=== PATIENT | female | born 1960 | race Caucasian/White ===

== ENCOUNTER → 2019-01-02 08:50 | Outpatient (CLI) | payer MEDICARE, SELFPAY ==
[2014-07-28 19:02] VITALS: BMI 17.9
--- NOTE | 2019-01-02 08:56 | RAD_ITS ---
STUDY: X-RAY - LUMBAR SPINE REASON FOR EXAM: Female, 58 years old. Low back pain TECHNIQUE: 3 view(s) of the lumbar spine were obtained. COMPARISON: None FINDINGS: Normal lumbar lordosis. There is a mild dextroscoliosis of the lumbar spine. There is a normal alignment of the vertebrae. Normal vertebral bodies and endplates. There is multi-level degenerative disc disease with multi-level disc space narrowing, most pronounced at L5/S1. There is no demonstrated fracture. The soft tissue structures are unremarkable. RAD/Lumbar Spine 2 or 3 Views IMPRESSION: Degenerative changes, no acute findings Electronically Signed: Dominic Timmons MD at 8:49 EDT , Service support ,
--- NOTE | 2019-01-02 09:00 | RAD_ITS ---
STUDY: X-RAY - CERVICAL SPINE REASON FOR EXAM: Female, 58 years old. NECK PAIN TECHNIQUE: 3 view(s) of the cervical spine were obtained. COMPARISON: None FINDINGS: Normal cervical lordosis. There is multi-level endplate spondylosis. There is multi-level degenerative disc disease with multilevel disc space narrowing. Findings are most prominent at C5/C6 with moderate disc space narrowing The soft tissue structures are unremarkable. RAD/Cerv Spine 2 or 3 Views IMPRESSION: Degenerative changes of the spine. Electronically Signed: Lizzy Berman MD at 8:34 EDT Tel , Service support ,
== END ==
PROVIDERS: Family Provider Student in an Organized Health Care Education/Training Program; PCP Student in an Organized Health Care Education/Training Program; Referring Provider Anesthesiology Pain Medicine; Visit Provider Anesthesiology Pain Medicine
DX: M54.2 Cervicalgia (principal); M54.9 Dorsalgia, unspecified
CPT/HCPCS: 72040; 72100

== ENCOUNTER → 2019-04-29 07:21 | Outpatient (CLI) | payer MEDICARE, SELFPAY ==
--- NOTE | 2019-04-29 07:45 | MRI_ITS ---
STUDY: MRI LUMBAR SPINE WITHOUT CONTRAST REASON FOR EXAM: Female, 58 years old. LOWER BACK AND BILAT HIP PAIN TECHNIQUE: Standardized fat and water weighted pulse sequences were obtained in the sagittal and axial planes. COMPARISON: X-ray 01/02/2019 FINDINGS: T12-L1: Normal endplates. Normal disc height, hydration and morphology. Normal bilateral facet joints. Normal central canal and bilateral lateral recesses. Normal bilateral intervertebral neural foramina. Normal lumbar lordosis. Mild dextroscoliosis of the upper lumbar spine. Normal conus medullaris that terminates at the L1/L2. L1-2: Normal endplates. Normal disc height, hydration and morphology. Normal bilateral facet joints. Normal central canal and bilateral lateral recesses. Normal bilateral intervertebral neural foramina. L2-3: Mild broad disc protrusion produces mild spinal stenosis and mild bilateral neural foraminal stenosis. L3-4: Mild bilobed disc protrusion produces mild spinal stenosis and mild bilateral neural foraminal stenosis. L4-5: Normal endplates. Normal disc height, hydration and morphology. Normal bilateral facet joints. Normal central canal and bilateral lateral recesses. Normal bilateral intervertebral neural foramina. L5-S1: Mild broad disc protrusion produces mild spinal stenosis and moderate bilateral neural foraminal stenosis. Normal visualized sacral ala. 3.5 cm abdominal aortic aneurysm. MRI/Spine Lumbar (Routine) IMPRESSION: 1. Mild dextroscoliosis with mild degenerative disc disease as described above.. 2. 3.5 cm abdominal aortic aneurysm. Electronically Signed: Antoine Crenshaw MD at 8:43 EST Tel , Service support ,
== END ==
PROVIDERS: PCP Student in an Organized Health Care Education/Training Program; Referring Provider Anesthesiology Pain Medicine; Visit Provider Anesthesiology Pain Medicine
DX: M54.9 Dorsalgia, unspecified (principal)
CPT/HCPCS: 72148

== ENCOUNTER 2019-08-08 19:02 | Emergency (ER) | payer MEDICARE, SELFPAY ==
[2019-08-08 19:03] VITALS: BP 212/138; PULSE 128; RESP 24; TEMP 36; O2SAT 87; BMI 17.0
[2019-08-08 19:08] VITALS: O2SAT 93
[2019-08-08 19:23] VITALS: O2SAT 93
--- NOTE | 2019-08-08 19:25 | RAD_ITS ---
We are attempting to reach an attending provider to discuss findings. An addendum with communication details will be sent when the communication is complete. STUDY: X-RAY CHEST REASON FOR EXAM: Female, 59 years old. NO BREATH SOUNDS LEFT AFTER INTERCOSTAL BLOCK TECHNIQUE: Portable chest COMPARISON: None. FINDINGS: There is a large left-sided pneumothorax. There is mediastinal shift to the right. There is no demonstrated pleural abnormality. Normal size heart. Normal mediastinum and didier. Normal visualized pulmonary arteries. Normal visualized aortic arch and descending thoracic aorta. Normal visualized thoracic spine. Normal visualized ribs, clavicles, and shoulders. There is no demonstrated abnormality of the visualized soft tissue structures of the upper abdomen. RAD/Chest Insp/Exp 2 View IMPRESSION: Large left-sided tension pneumothorax Electronically Signed: Sonu Purdy, at 20:19 EDT Tel , Service support ,
--- NOTE | 2019-08-08 19:29 | ED.VIS.GEN ---
History of Present Illness Chief Complaint: Shortness of Breath Detail of Chief Complaint: Sided chest pain and shortness of breath after intercostal nerve block Onset: Today Context: Sudden Onset Timing: Continuous Quality: States she coughed during procedure. She is had difficulty since Location: Left posterior side Current Severity: Moderate Maximum Severity: Severe Worsened by: Dyspnea on exertion Relieved by: Nothing Associated Symptoms: Cannot breathe Narrative: Patient is a 51-year-old woman who had an intercostal nerve block placed by Dr. Tee. She states all of her symptoms started after the intercostal nerve block. She states she coughed during the procedure. She denies fever, chills night sweats. She denies respiratory symptoms. She denies GI symptoms. She denies leg pain, swelling discoloration. She states she had the nerve block placed because of constant pain. Prior similar symptoms: No Recent Illness/Hospitalization: No Past Medical History - Allergies and Home Meds Allergies/Adverse Reactions: Allergies tramadol HCl [From Ultram] Allergy (Verified 08/08/19 19:03) Hives colesevelam HCl [From WelChol] Adverse Reaction (Verified 08/08/19 19:03) Other NSAIDS (Non-Steroidal Anti-Inflamma Adverse Reaction (Verified 08/08/19 19:03) Upset Stomach Primary Care Physician: Lionel Dunn DO [Primary Care Provider] - Prior records reviewed: Yes - History of COPD and chronic pain Surgical History: noncontributory Smoking Status: Current every day smoker Review of Systems General: Denies: Chills, Fever, Malaise Eyes: Denies: Visual changes - bilaterally, Blurred Vision - bilaterally ENT: Denies: Rhinorrhea, Sore throat Cardiovascular: Reports: Chest pain. Denies: Palpitations, Heart racing Respiratory: Reports: Dyspnea, Cough, Dyspnea on exertion. Denies: Sputum, Orthopnea, Paroxysmal nocturnal dyspnea Gastrointestinal: Denies: Abdominal pain, Nausea, Vomiting, Diarrhea, Melena, Hematochezia Genitourinary: Denies: Dysuria, Hematuria, Frequency Musculoskeletal: Denies: Myalgias, Arthralgias, Neck pain, Back pain, Swelling, Extremity Pain, -, - Skin: Denies: Rash, Wounds Neurological: Denies: Headache, Weakness Hematologic: Denies: Easy bruising, Easy bleeding Physical Exam Vital Signs/Narrative: Vital Signs Temp Pulse Resp BP Pulse Ox 08/08/19 19:08 93 08/08/19 19:03 96.8 F L 128 H 24 H 212/138 H 87 Inital Vital Signs reviewed: Yes General: Well developed, Cachectic, Acute Distress Head: Normocephalic, Atraumatic Eyes: Perrl, EOMI. Negative for: Pale conjunctiva, Scleral icterus ENT: Moist mucous membranes, No rhinorrhea, TM's clear Neck: Supple, Nontender, No lymphadenopathy, No JVD Cardiovascular: Regular rhythm, No murmurs, Normal S1, Normal S2, Tachycardia Respiratory: Retractions, - - Breath sounds on the left Abdomen: Soft, Nontender, Nondistended, Normal bowel sounds Rectal: Deferred Back: Nontender, Normal Inspection Extremities: Nontender, No edema Skin: Normal color, No rash Neurological: Alert, Oriented x3, Cranial nerves II-XII grossly intact, Normal Strength, Normal Sensation Psychological: Normal affect Diagnostic/Tx/Re-eval Chest X-Ray - ED: 2 View, Normal, Heart, Mediastinum, Chronic Changes, - - 50 to 75% pneumothorax on the left. Postprocedure x-ray was obtained. Small thoracostomy tube in proposition. The lung is completely expanded. Air was aspirated using a 60 cc syringe. Patient will be discharged to home with outpatient chest x-ray on Sunday and to be seen by Dr. Rafael Martinez on Sunday - Medical Decision Making With onset after intercostal nerve block and absent breath sounds concerned patient has pneumothorax on the left. Inspiratory and expiratory films were obtained. Procedures Procedure(s): It was consented for placement of thoracostomy tube for iatrogenic left pneumothorax. The area was prepped draped sterile manner. Using an 11 blade an incision was made in the skin. The catheter was placed without difficulty. Air was aspirated using 60 cc syringe. Post procedure x-ray reveals complete expansion of the pneumothorax and proper position of the tube. Patient be discharged home with appropriate home-going instructions. ED Disposition - Plan for ED Patient: Disposition: Home or Assisted Living Diagnosis: Pneumothorax, left Instructions: ED Pneumothorax Blunt Trauma Prescriptions: Hydrocodone Bitart/Apap 5-325 [[facility] 5MG-325MG] 1 tab PO Q6H PRN PRN 3 Days #10 tab PRN Reason: Pain Prescription Printed Referrals: Lionel Dunn DO [Primary Care Provider] - Rafael Martinez DO [STAFF PHYSICIAN] - 08/12/19 Additional Instructions: We will need to contact the radiology department to set up an appointment for outpatient chest x-ray Sunday before seeing Dr. Martinez.
--- NOTE | 2019-08-08 20:05 | RAD_ITS ---
STUDY: X-RAY CHEST REASON FOR EXAM: Female, 59 years old. chest tube placement TECHNIQUE: Portable chest COMPARISON: 08/08/2019 FINDINGS: The left-sided pneumothorax has almost completely reexpanded. There is minimal residual left apical pneumothorax. There is placement of a left-sided chest tube directed towards the left apex. There is no demonstrated pleural abnormality. There are likely bilateral bulla. Normal size heart. Normal mediastinum and didier. Normal visualized pulmonary arteries. Normal visualized aortic arch and descending thoracic aorta. Normal visualized thoracic spine. Normal visualized ribs, clavicles, and shoulders. There is no demonstrated abnormality of the visualized soft tissue structures of the upper abdomen. RAD/Chest 1 View (Portable) IMPRESSION: left-sided pneumothorax has almost completely reexpanded. There is minimal residual left apical pneumothorax. There is placement of a left-sided chest tube directed towards the left apex. Likely COPD changes Electronically Signed: Sonu Purdy, at 20:34 EDT Tel , Service support ,
[2019-08-08 20:32] VITALS: BP 183/102; PULSE 112; RESP 28; O2SAT 96
[2019-08-08] MEDS: Morphine 4 MG/ML Syringe IV (21:12)
[2019-08-08] MEDS: Ondansetron 4 MG/2 ML Vial IV (21:12)
[2019-08-08 21:13] VITALS: BP 178/91; PULSE 111; RESP 28; O2SAT 98
--- NOTE | 2019-08-08 21:19 | ED.RN ---
EXTENSIVE TEACHING REGARDING CHEST TUBE DISCHARGE INSTRUCTIONS GIVEN TO PT. PT AND SPOUSE VERBALIZE UNDERSTANDING.
== END 2019-08-08 21:13 | disposition home or self-care (01) ==
LOC: ED 20:29
PROVIDERS: Emergency Provider Emergency Medicine; PCP Student in an Organized Health Care Education/Training Program
DX: J93.0 Spontaneous tension pneumothorax (principal); F17.200 Nicotine dependence, unspecified, uncomplicated
CPT/HCPCS: 32551; 71045; 71046; 96374; 96375; 99283; A4216; J2405

== ENCOUNTER → 2019-08-12 12:44 | Outpatient (CLI) | payer MEDICARE, SELFPAY ==
[2019-08-08 19:03] VITALS: BMI 17.0
--- NOTE | 2019-08-12 13:00 | RAD_ITS ---
HISTORY: CHECK UP FOR PNEMOHORAX, CHEST TUBE ADDITIONAL HISTORY: None provided. COMPARISON: 08/08/2019 TECHNIQUE: Frontal and lateral chest radiographs. Number of images including paperwork: 2 FINDINGS: LUNGS AND PLEURA: No consolidation, mass or pleural effusion. Minimal left apical pneumothorax measuring 5 mm in thickness. CARDIAC SILHOUETTE: Unremarkable. MEDIASTINUM AND JOAN: Unremarkable. UPPER ABDOMEN: Unremarkable. SKELETON AND SOFT TISSUES: No acute findings. OTHER DEVICES AND HARDWARE: Left chest tube with tip in the anterior superior left hemithorax.. RAD/Chest PA and Lateral IMPRESSION: Minimal left apical pneumothorax. at 0655 Reported and signed by: Gaby Cox MD Electronically Signed: Gaby Cox MD at 6:55 EDT Tel , Service support ,
== END ==
PROVIDERS: PCP Student in an Organized Health Care Education/Training Program; Referring Provider Emergency Medicine; Visit Provider Emergency Medicine
DX: J93.9 Pneumothorax, unspecified (principal)
CPT/HCPCS: 71046

== ENCOUNTER → 2019-08-13 10:55 | Outpatient (CLI) | payer MEDICARE, SELFPAY ==
[2019-08-08 19:03] VITALS: BMI 17.0
--- NOTE | 2019-08-13 10:57 | RAD_ITS ---
STUDY: X-RAY CHEST REASON FOR EXAM: Female, 59 years old. S/P LEFT CHEST TUBE REMOVAL. PATIENT STATES HAD A PNEUMOTHORAX AFTER HER NERVE BLOCK THIS PAST SUNDAY. TECHNIQUE: PA and lateral views of the chest. COMPARISON: Comparison is made with prior examination dated August 12, 2019. FINDINGS: The left-sided small caliber chest tube has been removed. There is no evidence of left-sided pneumothorax. There is hyperinflation of the lungs consistent with chronic obstructive lung disease (COPD). There is no demonstrated pleural abnormality. Normal size heart. Normal mediastinum and didier. Normal visualized pulmonary arteries. Normal visualized aortic arch and descending thoracic aorta. Normal visualized thoracic spine. Normal visualized ribs, clavicles, and shoulders. There is no demonstrated abnormality of the visualized soft tissue structures of the upper abdomen. RAD/Chest PA and Lateral IMPRESSION: No evidence of pneumothorax. Hyperinflation. Electronically Signed: Srinath Smith, at 11:17 EDT , Service support ,
== END ==
PROVIDERS: PCP Student in an Organized Health Care Education/Training Program; Visit Provider Internal Medicine Critical Care Medicine
DX: J95.811 Postprocedural pneumothorax (principal)
CPT/HCPCS: 71046

== ENCOUNTER → 2020-03-10 09:05 | Outpatient (CLI) | payer MEDICARE, SELFPAY ==
[2020-03-10 10:43] LABS: Amphetamine Urine VISTA NEGATIVE (<1000 ng/mL); Barbiturate Urine VISTA NEGATIVE (< 200 ng/mL); Benzodiazepine Urine VISTA NEGATIVE (< 200 ng/mL); Cocaine Urine VISTA NEGATIVE (< 300 ng/mL); Ecstacy Urine VISTA NEGATIVE (< 500 ng/mL); Methadone Urine VISTA NEGATIVE (< 300 ng/mL); PCP Urine VISTA NEGATIVE (< 25 ng/mL); THC Urine VISTA NEGATIVE (< 50 ng/mL); Vista UDS pH Range 5
== END ==
PROVIDERS: PCP Student in an Organized Health Care Education/Training Program; Visit Provider Anesthesiology Pain Medicine
DX: F11.20 Opioid dependence, uncomplicated (principal)
CPT/HCPCS: 80307

== ENCOUNTER → 2020-08-25 11:35 | Outpatient (CLI) | payer MEDICARE, SELFPAY ==
[2020-08-25 13:12] LABS: Amphetamine Urine VISTA NEGATIVE (<1000 ng/mL); Barbiturate Urine VISTA NEGATIVE (< 200 ng/mL); Benzodiazepine Urine VISTA POSITIVE (< 200 ng/mL); Cocaine Urine VISTA NEGATIVE (< 300 ng/mL); Ecstacy Urine VISTA NEGATIVE (< 500 ng/mL); Methadone Urine VISTA NEGATIVE (< 300 ng/mL); PCP Urine VISTA NEGATIVE (< 25 ng/mL); THC Urine VISTA NEGATIVE (< 50 ng/mL); Vista UDS pH Range 5
== END ==
PROVIDERS: PCP Student in an Organized Health Care Education/Training Program; Referring Provider Anesthesiology Pain Medicine; Visit Provider Anesthesiology Pain Medicine
DX: F11.20 Opioid dependence, uncomplicated (principal)
CPT/HCPCS: 80307

== ENCOUNTER 2021-04-02 13:24 | Outpatient (CLI) | payer MEDICARE, SELFPAY ==
--- NOTE | 2021-04-02 13:31 | RAD_ITS ---
STUDY: X-RAY - CERVICAL SPINE REASON FOR EXAM: Female, 60 years old. NECK PAIN TECHNIQUE: 2 view(s) of the cervical spine were obtained. COMPARISON: None FINDINGS: Normal anterior atlantoaxial articulation. Normal odontoid process. Normal cervical lordosis. No cervical spine fracture. Slight loss of disc space at C5-C6 with endplate sclerosis and spondylosis. No spondylolisthesis. The soft tissue structures are unremarkable. RAD/Cerv Spine 2 or 3 Views IMPRESSION: 1. Mild degenerative disc disease at C5-C6. Electronically Signed: Tristian Burgess MD ([place]) at 13:53 EST , Service support ,
== END 2021-04-02 23:59 | disposition short-term general hospital (02) ==
LOC: RAD 13:27
PROVIDERS: PCP Student in an Organized Health Care Education/Training Program; Visit Provider Anesthesiology Pain Medicine
DX: M50.322 Other cervical disc degeneration at C5-C6 level (principal)
CPT/HCPCS: 72040

== ENCOUNTER → 2021-05-04 11:26 | Outpatient (CLI) | payer MEDICARE, SELFPAY ==
[2021-05-04 13:11] LABS: Amphetamine Urine VISTA NEGATIVE (<1000 ng/mL); Barbiturate Urine VISTA NEGATIVE (< 200 ng/mL); Benzodiazepine Urine VISTA NEGATIVE (< 200 ng/mL); Cocaine Urine VISTA NEGATIVE (< 300 ng/mL); Ecstacy Urine VISTA NEGATIVE (< 500 ng/mL); Methadone Urine VISTA NEGATIVE (< 300 ng/mL); PCP Urine VISTA NEGATIVE (< 25 ng/mL); THC Urine VISTA NEGATIVE (< 50 ng/mL); Vista UDS pH Range 6
== END ==
PROVIDERS: PCP Student in an Organized Health Care Education/Training Program; Referring Provider Anesthesiology Pain Medicine; Visit Provider Anesthesiology Pain Medicine
DX: F11.20 Opioid dependence, uncomplicated (principal)
CPT/HCPCS: 80307

== ENCOUNTER → 2021-10-19 | Outpatient (CLI) | payer MEDICARE, SELFPAY ==
[2021-10-19 10:30] LABS: Amphetamine Urine VISTA NEGATIVE (<1000 ng/mL); Barbiturate Urine VISTA NEGATIVE (< 200 ng/mL); Benzodiazepine Urine VISTA NEGATIVE (< 200 ng/mL); Cocaine Urine VISTA NEGATIVE (< 300 ng/mL); Ecstacy Urine VISTA NEGATIVE (< 500 ng/mL); Methadone Urine VISTA NEGATIVE (< 300 ng/mL); PCP Urine VISTA NEGATIVE (< 25 ng/mL); THC Urine VISTA NEGATIVE (< 50 ng/mL); Vista UDS pH Range 5
== END | disposition home or self-care (01) ==
LOC: LAB 09:34
PROVIDERS: PCP Student in an Organized Health Care Education/Training Program; Referring Provider Anesthesiology Pain Medicine; Visit Provider Anesthesiology Pain Medicine
DX: F11.20 Opioid dependence, uncomplicated (principal)
CPT/HCPCS: 80307

== ENCOUNTER 2022-11-10 10:35 | Inpatient (IN) | payer MEDICARE, SELFPAY ==
[2022-11-10] VITALS (12 sets, daily range): BP systolic 106–136; BP diastolic 60–100; PULSE 90–122; RESP 16–29; TEMP 36.1–36.7; O2SAT 88–97; BMI 14.3
--- NOTE | 2022-11-10 11:07 | EX.ED.DYSGE1 ---
HPI <ERI Vang - Last Filed: 11/10/22 12:34> History of Present Illness Chief Complaint: Shortness of Breath Narrative Narrative: Patient is a 62-year-old female with history of COPD, half pack a day smoker, hypertension who presents to the emergency department for 2 weeks of generalized illness, 1 week of cough and increased shortness of breath. Per the patient, the patient's boyfriend was ill, and over the last 2 weeks she has been becoming more ill. Patient noticed that she is having more shortness of breath, she is having a harsh cough with yellow to green sputum. Patient states she does not have any albuterol inhaler, breathing treatments at home. She has not been on steroids. She states they have sweating however no documented fevers. She states that she is more shortness of breath with any walking, she also does not have any oxygen at home. PFSH <ERI Vang - Last Filed: 11/10/22 12:34> PFSH Medical History COPD (chronic obstructive pulmonary disease) HTN (hypertension) Severe protein-calorie malnutrition Tobacco use Home Medications hydrocodone-acetaminophen 5-325mg 5mg-325mg 1 ea PO BID 08/08/19 [History Last Taken 11/10/22] guaifenesin 600 mg tablet, extended release 12 hr 600 mg PO BID 08/13/19 [History Last Taken 11/10/22] acetaminophen 650 mg tablet,extended release (8 Hour Pain Reliever) 650 mg PO Q8H PRN pain 11/10/22 [History Last Taken 11/10/22] Allergy/AdvReac Type Severity Reaction Status Date / Time tramadol HCl [From Ultram] Allergy Hives Verified 11/10/22 10:35 colesevelam HCl AdvReac Other Verified 11/10/22 10:35 [From WelChol] NSAIDS (Non-Steroidal AdvReac Upset Verified 11/10/22 10:35 Anti-Inflamma Stomach Family History Mother Cancer Lung Father CVA (cerebral vascular accident) Surgical History H/O tubal ligation H/O: hysterectomy Social History household members: significant other Smoking Status: Current every day smoker tobacco type: cigarettes Tobacco: How many years used: 41 substance use type: does not use ROS <ERI Vang - Last Filed: 11/10/22 12:34> ROS ED ROS Narrative Constitutional: Negative for fever, weight loss, weakness. Positive for chills, weakness Eyes: Negative for vision loss, vision change, double vision ENT: Negative for any sore throat, ear pain, congestion Cardiovascular: Negative for any chest pain, tightness, palpitations Respiratory: Positive for any cough, sputum production, hemoptysis, dyspnea, dyspnea on exertion, orthopnea Gastrointestinal: Negative for any abdominal pain, nausea, vomiting, diarrhea, constipation, blood in stool, blood in vomit : Negative for any urinary frequency, dysuria, retention, blood in urine Muscle skeletal: Negative for any muscle joint pain, stiffness, arthralgias, neck pain, back pain. Positive for myalgias Neurological: Negative for any headache, syncope, numbness or tingling, dizziness Skin: Negative for any rashes, lumps, itching, abrasions, lacerations Psychiatric: Negative for any depression, anxiety, stress, suicidal ideation, homicidal ideation Hematologic: Negative for any easy bruising, excessive bruising, easy bleeding Allergies: Negative for any eczema, hives, rash EXAM <ERI Vang - Last Filed: 11/10/22 12:34> Physical Exam Narrative Exam Narrative: Vital signs reviewed. Patient appears to be in mild to moderate distress. Patient is 91 and 92% on 3 L nasal cannula. Patient was hypoxic on room air. She is tachypneic. Accessory muscle use. Pursed lip breathing. HEET: Head normocephalic atraumatic, TMs clear bilaterally. Posterior pharynx is clear, moist mucous membranes. Nares clear bilaterally. Neck: Supple with no lymphadenopathy or tenderness. No signs of meningismus, negative jolt sign. Cardiac: Tachycardic rate no murmurs gallops or rubs, equal peripheral pulses bilaterally. Respiratory: Expiratory wheezes to bilateral lower lung sounds. While coarse breath sounds to the right middle to upper lobe. No chest tenderness. Abdomen: Soft, nontender, nondistended. No abdominal bruit or pulsatile masses. No hepatosplenomegaly Extremities: No peripheral edema, no signs of gross trauma or deformity. Active full range of motion of all extremities. Neuro: Cranial nerves II through XII intact, no focal neurological deficits. Skin: Clean dry and intact with no rash, purpura, petechiae, vesicles or pustules. Backs/flank: No CVA tenderness, no midline spinal tenderness, no deformity. Psych: Normal mood and affect. No SI, HI or acute psychosis. Const Vital Signs: 11/10/22 10:36 11/10/22 10:38 11/10/22 10:39 Temperature 98 F Temperature Source Temporal Pulse Rate 119 H 122 H Respiratory Rate 26 H Respiratory Effort Respiratory Pattern Blood Pressure 117/60 Blood Pressure Mean 79 Pulse Ox 88 88 Oxygen Delivery Method Room Air Room Air Oxygen Flow Rate (L/min) 11/10/22 10:40 11/10/22 11:10 11/10/22 11:41 Temperature Temperature Source Pulse Rate 117 H 104 H Respiratory Rate 20 H 29 H Respiratory Effort Short of Breath Labored Respiratory Pattern Tachypnea Blood Pressure 118/91 H Blood Pressure Mean 100 Pulse Ox 94 Oxygen Delivery Method Nasal Cannula Oxygen Flow Rate (L/min) 2 11/10/22 12:13 Temperature 97.5 F L Temperature Source Temporal Pulse Rate 112 H Respiratory Rate 16 Respiratory Effort Respiratory Pattern Blood Pressure 106/92 H Blood Pressure Mean 96 Pulse Ox 97 Oxygen Delivery Method Nasal Cannula Oxygen Flow Rate (L/min) 2 Positive cachectic General Appearance ED: cachectic Nutritional Appearance: cachectic <Dr. Celestino Theodore MD - Last Filed: 11/10/22 12:51> Physical Exam Const Vital Signs: 11/10/22 10:36 11/10/22 10:38 11/10/22 10:39 Temperature 98 F Temperature Source Temporal Pulse Rate 119 H 122 H Respiratory Rate 26 H Respiratory Effort Respiratory Pattern Blood Pressure 117/60 Blood Pressure Mean 79 Pulse Ox 88 88 Oxygen Delivery Method Room Air Room Air Oxygen Flow Rate (L/min) 11/10/22 10:40 11/10/22 11:10 11/10/22 11:41 Temperature Temperature Source Pulse Rate 117 H 104 H Respiratory Rate 20 H 29 H Respiratory Effort Short of Breath Labored Respiratory Pattern Tachypnea Blood Pressure 118/91 H Blood Pressure Mean 100 Pulse Ox 94 Oxygen Delivery Method Nasal Cannula Oxygen Flow Rate (L/min) 2 11/10/22 12:13 Temperature 97.5 F L Temperature Source Temporal Pulse Rate 112 H Respiratory Rate 16 Respiratory Effort Respiratory Pattern Blood Pressure 106/92 H Blood Pressure Mean 96 Pulse Ox 97 Oxygen Delivery Method Nasal Cannula Oxygen Flow Rate (L/min) [address] [facility] <Arben ERI Hernandez - Last Filed: 11/10/22 12:34> [facility] Lab Data Labs: Laboratory Results - last 24 hr 11/10/22 11/10/22 11:30 12:00 WBC 23.0 H RBC 5.52 H Hgb 14.5 Hct 48.0 H MCV 87.0 MCH 26.3 L MCHC 30.2 L RDW Std Deviation 45.5 H RDW Coeff of Emeli 14.3 Plt Count 365 MPV 10.0 Immature Gran % (Auto) 0.600 Neut % (Auto) 88.8 H Lymph % (Auto) 5.0 L [place] % (Auto) 5.2 Eos % (Auto) 0.0 Baso % (Auto) 0.4 Absolute Neuts (auto) 20.4 H Absolute Lymphs (auto) 1.14 Nucleated RBC % 0 Sodium 135 L Potassium 5.0 Chloride 97 L Carbon Dioxide 33.0 H Anion Gap 5 BUN 28 H Creatinine 0.84 Estim Creat Clear Calc 38.42 Est GFR (MDRD) Af Amer 88 Est GFR (MDRD) Non-Af 73 BUN/Creatinine Ratio 33.2 H Glucose 145 H Lactic Acid 3.0 H* Calcium 10.2 H Radiography Diagnostic Testing: Clinical Impression(s) from Imaging Studies Chest X-Ray 11/10/22 11:48 IMPRESSION: Hyperinflated lungs suggestive of COPD. Patchy opacity within the right lower lobe may reflect pneumonia. Electronically Signed: Evelin Martinez MD at 12:06 EDT , EKG Sinus tachycardia: Attestation: I personally reviewed and interpreted this EKG as follows: Interpretation: Sinus Tachycardia Comments: Sinus tachycardia, rate 114 bpm IA interval 128 ms, QRS duration 82 ms, no acute ST elevation, no acute infarct noted. Treatment and Re-Evaluation :: Patient appears to be in mild distress secondary to respiratory difficulty, cough. Presented to the emergency department for cough, generalized feeling of unwell for 2 weeks. Upon initial evaluation, patient was 88% on room air, patient was cachectic, she COPD, as well as continues to use tobacco. Patient will receive a full respiratory work-up. Patient had a two-view chest x-ray concerning for any pneumonia, infectious process. Patient also received some breathing treatments. COPD versus pneumonia. Patient also receive influenza as well as COVID-19. Upon initial evaluation, I did speak with the patient possible admission secondary to hypoxia. Patient will be given 125 mg of Solu-Medrol. Patient's chest x-ray showed right lower lobe pneumonia as well as COPD changes. Patient's laboratory values were consistent with infection with a white blood cell count of 23,000. Secondary to the elevated heart rate, hypoxia, findings of pneumonia, patient did have 2 sets of blood culture as well as lactic drawn. Patient's chemistries were unremarkable. Patient will be given IV Rocephin, azithromycin. Dosage change secondary the patient's low weight. Patient will be admitted to the hospital. All questions answered, patient verbally understands the importance of admission. Patient stable. <Dr. Celestino Theodore MD - Last Filed: 11/10/22 12:51> [facility] MDM Narrative Medical decision making narrative: I have personally performed a face to face assessment of the patient and have reviewed the GISELLA Note. I performed a substantive portion of the visit including all aspects of the following. My nagel findings include: History is remarkable for cough is productive, fatigue, dyspnea on exertion weight loss. Exam is cachectic. She is tachycardic tachypneic and hypoxic. HEENT is remarkable for sunken eyes temporal wasting and slightly dry mucosa. Neck is supple. Trachea is midline. Lungs reveal diminished breath sounds bilaterally with expiratory wheezing. There is egophony noted on the right posteriorly. There is no difference in breath sounds from right or left. There is no hyperresonance. Heart is rapid and regular. There is no murmur, gallop or rub. Abdomen benign. There is no asymmetry, swelling, discoloration, leg vein distention, palpable cords or tenderness along the distribution of the deep venous system. Alert oriented x3 with a nonfocal neurologic exam Medical Decision Making differential diagnosis would include COPD exacerbation, pneumothorax, pneumonia, if no abnormality to explain her symptoms would need to consider pulmonary embolus. Appropriate blood work was ordered. Other additions or changes: [None] Lab Data Attestation: I reviewed the patient's lab results. Lab results narrative: White count is elevated 23,000 with shift. There is no bandemia. Basic metabolic panel is remarkable for elevated CO2 consistent with probable chronic retainer from her COPD. Creatinine is normal at 0.8 with a GFR 73. BUN to creatinine ratio is 33:2 which is consistent with prerenal azotemia. Labs: Laboratory Results - last 24 hr 11/10/22 11/10/22 11:30 12:00 WBC 23.0 H RBC 5.52 H Hgb 14.5 Hct 48.0 H MCV 87.0 MCH 26.3 L MCHC 30.2 L RDW Std Deviation 45.5 H RDW Coeff of Emeli 14.3 Plt Count 365 MPV 10.0 Immature Gran % (Auto) 0.600 Neut % (Auto) 88.8 H Lymph % (Auto) 5.0 L [place] % (Auto) 5.2 Eos % (Auto) 0.0 Baso % (Auto) 0.4 Absolute Neuts (auto) 20.4 H Absolute Lymphs (auto) 1.14 Nucleated RBC % 0 Sodium 135 L Potassium 5.0 Chloride 97 L Carbon Dioxide 33.0 H Anion Gap 5 BUN 28 H Creatinine 0.84 Estim Creat Clear Calc 38.42 Est GFR (MDRD) Af Amer 88 Est GFR (MDRD) Non-Af 73 BUN/Creatinine Ratio 33.2 H Glucose 145 H Lactic Acid 3.0 H* Calcium 10.2 H Radiography Chest X-Ray - ED: 2 View and Read by ED Physician (2 view chest x-ray compared to prior reveals right lower lobe infiltrate consistent with pneumonia in light of patient's clinical findings and symptoms.) Diagnostic Testing: Clinical Impression(s) from Imaging Studies Chest X-Ray 11/10/22 11:48 IMPRESSION: Hyperinflated lungs suggestive of COPD. Patchy opacity within the right lower lobe may reflect pneumonia. Electronically Signed: Evelin Martinez MD at 12:06 EDT , Discharge Plan Dx/Rx/DC Orders Clinical Impression: Community acquired pneumonia, Hypoxia, SIRS (systemic inflammatory response syndrome), Bronchospasm, acute, Acute exacerbation of chronic obstructive pulmonary disease Disposition Disposition: Acute Care [facility]
[2022-11-10] MEDS: Ipratropium/Albuterol Sulfate 3 ML AMPUL.NEB INHALATION ×2 (11:08→19:42)
[2022-11-10] MEDS: Albuterol 2.5 MG/3 ML VIAL.NEB. INHALATION (11:08)
[2022-11-10 11:39] LABS: Absolute Lymphocyte Count 1.14 X10^3/uL (0.83-4.51); Absolute Neutrophil Count 20.4 X10^3/uL (2.0-7.7); Basophil# 0.09 X10^3/uL; Basophil% 0.4 % (0-1); Hemoglobin 14.5 g/dL (12.0-15.0); Lymphocyte # 1.14 X10^3/ul (0.83-4.51); Mean Corp Hgb Conc 30.2 g/dL (32-36); Mean Corpuscular Hgb 26.3 pg (27.0-32.0); Monocyte% 5.2 % (0-10); NRBC Flagged by Analyzer 0 % (0-5); Neutrophil # 20.44 X10^3/uL (2.7-7.7); Neutrophil % 88.8 % (47-70); POSITIVE DIFFERENTIAL YES; Platelet Count 365 K/mm3 (150-450); RBC Distribution Width CV 14.3 % (11.6-14.6); RBC Distribution Width SD 45.5 fl (35.1-43.9); Red Blood Count 5.52 M/mm3 (4.2-5.4)
[2022-11-10 11:40] LABS: Differential Indicated SCAN CRITERIA MET
--- NOTE | 2022-11-10 11:48 | RAD_ITS ---
INDICATION: Shortness of breath EXAMINATION/TECHNIQUE: X-RAY - XR Chest 2 Views COMPARISON: Prior study dated: June 13, 2019 FINDINGS: LINES/DEVICES: None. LUNGS: The lungs are hyperinflated. There is a patchy opacity within the right lower lobe. MEDIASTINUM AND CARDIOVASCULAR STRUCTURES: Cardiac silhouette not enlarged. Central airways and mediastinal contour are unremarkable. BONES AND SOFT TISSUES: Unremarkable. RAD/Chest PA and Lateral IMPRESSION: Hyperinflated lungs suggestive of COPD. Patchy opacity within the right lower lobe may reflect pneumonia. Electronically Signed: Evelin Martinez MD at 12:06 EDT ,
[2022-11-10 12:01] LABS: Anion Gap 5 (5-15); BUN 28 mg/dL (7-18); BUN/Creat Ratio 33.2 RATIO (10-20); Calcium,Total 10.2 mg/dL (8.5-10.1); Chloride 97 mmol/L (98-107); Creatinine, Serum 0.84 mg/dL (0.55-1.02); EST Glomerular Filtration Rate 73 mL/min (>60); Est Glom Filt Rate - Afr Amer 88 mL/min (>60); Estimated Creatinine Clearance 38.42 ml/min; Glucose 145 mg/dL (74-106); Sodium Level 135 mmol/L (136-145)
[2022-11-10] MEDS: MethylPREDNISolone 125 MG/2 ML Vial IV (12:18)
[2022-11-10] MEDS: Ceftriaxone 1 GM/50 ML BAG IV (12:22)
--- NOTE | 2022-11-10 12:29 | PCM.HP.STD ---
HPI - General General Date of Admission: 11/10/22 Date of Service: 11/10/22 Chief Complaint: Dyspnea, productive cough. HPI Narrative The patient is a 62 y/o F w/ PMHx: HTN, Tobacco use, Suspected Underlying, Severe Protein Calorie Malnutrition w/ reduced BMI who presents to the [facility] ED on 11/10/22 with history of increased fatigue and malaise for approximately 2 weeks of noted 1 week of onset increased of cough with increased dyspnea progressively worsening reporting that her boyfriend is also been ill bringing up yellow to green sputum with no specific fevers but notes notable diaphoresis more short of breath with any exertion prompting eventual ED evaluation. Work-up in the ED included T98, heart rate initially 119 with most recent repeat 112, BP initially 117/60 with most recent repeat 106/92, respiratory rate 26, initially 88% on room air with improvement to 94% on 2 L nasal cannula, CBC with WBC 23, hemoglobin 14.5, platelet 365 with significant left shift, BMP with sodium 135, chloride 97, carbon oxide 33, BUN/creatinine 28/0.84, glucose 145, lactic acid pending upon requested evaluation of patient, calcium 10.2, chest x-ray with hyperinflated lungs suggestive of COPD with also patchy opacity within the right lower lobe concerning for pneumonia, blood culture x2 pending per ED, rapid flu and COVID antigen pending per ED. In the ED patient administered IV azithromycin, IV Rocephin as well as DuoNeb and albuterol therapies as well as Solu-Medrol 125 mg IV x1. PFSH Medical History COPD (chronic obstructive pulmonary disease) HTN (hypertension) Severe protein-calorie malnutrition Tobacco use Home Medications hydrocodone-acetaminophen 5-325mg 5mg-325mg 1 ea PO BID 08/08/19 [History Last Taken 11/10/22] guaifenesin 600 mg tablet, extended release 12 hr 600 mg PO BID 08/13/19 [History Last Taken 11/10/22] acetaminophen 650 mg tablet,extended release (8 Hour Pain Reliever) 650 mg PO Q8H PRN pain 11/10/22 [History Last Taken 11/10/22] Allergy/AdvReac Type Severity Reaction Status Date / Time tramadol HCl [From Ultram] Allergy Hives Verified 11/10/22 14:22 colesevelam HCl AdvReac Intermediate stiff Verified 11/10/22 14:22 [From WelChol] muscles NSAIDS (Non-Steroidal AdvReac Upset Verified 11/10/22 14:22 Anti-Inflamma Stomach Family History Mother Cancer Lung Father CVA (cerebral vascular accident) Surgical History H/O tubal ligation H/O: hysterectomy Social History (Updated 11/10/22 @ 17:[address] Chelsea Vegas MD) household members: spouse Smoking Status: Current every day smoker tobacco type: cigarettes Tobacco: How many years used: 41 alcohol intake: never substance use type: does not use ROS ROS Narrative Admission Review of Systems: CONSTITUTIONAL: No weight loss, fever, chills, + weakness or fatigue. HEENT: Eyes: No visual loss, blurred vision, double vision or yellow sclerae. Ears, Nose, Throat: No hearing loss, sneezing, congestion, runny nose or sore throat. SKIN: No rash or itching, lesions, wounds. CARDIOVASCULAR: No chest pain, chest pressure or chest discomfort, palpitations, edema, orthopnea, syncopal events. RESPIRATORY: + shortness of breath, cough with intermittent productive sputum, wheezing. No hemoptysis. GASTROINTESTINAL: No anorexia, nausea, vomiting or diarrhea, abdominal pain, melena, BRBPR. GENITOURINARY: No dysuria, frequency, urgency or retention. NEUROLOGICAL: No headache, dizziness, syncope, paralysis, ataxia, numbness or tingling in the extremities, focal weakness, change in bowel or bladder control, seizure. MUSCULOSKELETAL: + muscle, back pain, joint pain or stiffness. HEMATOLOGIC: No anemia, bleeding or bruising. LYMPHATICS: No enlarged nodes. No history of splenectomy. PSYCHIATRIC: No history of depression or anxiety. ENDOCRINOLOGIC: + reports of sweating. No cold or heat intolerance. No polyuria or polydipsia. ALLERGIES: + History of hives. Vital Signs Vital Signs Vital Signs: 11/10/22 10:36 11/10/22 10:38 11/10/22 10:39 Temperature 98 F Temperature Source Temporal Pulse Rate 119 H 122 H Respiratory Rate 26 H Respiratory Effort Respiratory Pattern Blood Pressure 117/60 Blood Pressure Mean 79 Pulse Ox 88 88 Oxygen Delivery Method Room Air Room Air Oxygen Flow Rate (L/min) 11/10/22 10:40 11/10/22 11:10 11/10/22 11:41 Temperature Temperature Source Pulse Rate 117 H 104 H Respiratory Rate 20 H 29 H Respiratory Effort Short of Breath Labored Respiratory Pattern Tachypnea Blood Pressure 118/91 H Blood Pressure Mean 100 Pulse Ox 94 Oxygen Delivery Method Nasal Cannula Oxygen Flow Rate (L/min) 2 11/10/22 12:13 Temperature 97.5 F L Temperature Source Temporal Pulse Rate 112 H Respiratory Rate 16 Respiratory Effort Respiratory Pattern Blood Pressure 106/92 H Blood Pressure Mean 96 Pulse Ox 97 Oxygen Delivery Method Nasal Cannula Oxygen Flow Rate (L/min) 2 Weight Weight: 76 lb 4.479 oz Body Mass Index (BMI) 14.3 Physical Exam Narrative Physical Examination: General: Awake, alert, oriented x 3 and cooperative, seated upright in the ED bed, fatigued, mildly increased respiratory rate and accessory muscle usage but no distress overtly, fatigued appearing. Skin: Normal color, normal turgor, no icterus, no cyanosis. HEENT: AT/NC, EOMI, PERRLA, dry MM, no carotid bruits or JVD noted. Lungs: Severely diminished, greater bases, diffuse end expiratory and inspiratory wheezing, mild increased respiratory rate and accessory muscle usage but no distress overtly, no rales or rhonchi. Heart: Mildly tachycardic with regular rhythm; no gallop, rub audible. Abdomen: Soft, thin cachectic habitus, NTTP, ND, distant normal BS, no HSM. Extremities: No cyanosis, clubbing, or edema, obvious muscle and fat loss. Neurological: Patient awake, alert, oriented as noted, cognitive function intact; pupils equally reactive to light and accommodation, cranial nerves II-XII grossly normal, moving all 4 extremities, no focal deficits, strength severely globally decreased secondary to acute presentation. Psychiatric: Affect appears fatigued, no acute evidence of depressive or anxiety feelings. Results Lab / Micro Data 11/10/22 11:30 11/10/22 11:30 Labs: Laboratory Results - last 24 hr 11/10/22 11:30: WBC 23.0 H, RBC 5.52 H, Hgb 14.5, Hct 48.0 H, MCV 87.0, MCH 26.3 L, MCHC 30.2 L, RDW Std Deviation 45.5 H, RDW Coeff of Emeli 14.3, Plt Count 365, MPV 10.0, Immature Gran % (Auto) 0.600, Neut % (Auto) 88.8 H, Lymph % (Auto) 5.0 L, [place] % (Auto) 5.2, Eos % (Auto) 0.0, Baso % (Auto) 0.4, Absolute Neuts (auto) 20.4 H, Absolute Lymphs (auto) 1.14, Nucleated RBC % 0, Sodium 135 L, Potassium 5.0, Chloride 97 L, Carbon Dioxide 33.0 H, Anion Gap 5, BUN 28 H, Creatinine 0.84, Estim Creat Clear Calc 38.42, Est GFR (MDRD) Af Amer 88, Est GFR (MDRD) Non-Af 73, BUN/Creatinine Ratio 33.2 H, Glucose 145 H, Calcium 10.2 H Radiology Impression Chest X-Ray 11/10/22 11:48 IMPRESSION: Hyperinflated lungs suggestive of COPD. Patchy opacity within the right lower lobe may reflect pneumonia. Electronically Signed: Evelin Martinez MD at 12:06 EDT , Assessment & Plan Assessment/Plan (1) Community acquired pneumonia: (2) Hypoxia: PLAN: Plan The patient is a 62 y/o F w/ PMHx: HTN, Tobacco use, Suspected Underlying, Severe Protein Calorie Malnutrition w/ reduced BMI who presents to the [facility] ED on 11/10/22 with history of increased fatigue and malaise for approximately 2 weeks with 1 crease of cough with increased dyspnea progressively worsening reporting that her boyfriend is also been ill bringing up yellow to green sputum with no specific fevers but notes notable diaphoresis more short of breath with any exertion prompting eventual ED evaluation. #1. Acute Hypoxia secondary to Acute RLL Pneumonia Community Acquired PNA and concurrent Acute on Chronic COPD Exacerbation: Will admit to [facility], maintain on oxygen with wean as tolerated to room air, continue ATC duonebs, PRN albuterol, maintained on IV Rocephin and Azithromycin, IV solumedrol, HOB, IS parameters w/ pending sputum cultures, COVID PCR, full respiratory viral panel and urine antigens. Bld cx x 2 obtained in the ED. #2. Hypertension: Currently BP normal range, previous prescription has been noted 04/18/2022 for hydrochlorothiazide as well as 06/10/2022 metoprolol however she is not taking these and given current BP normal range we will hold off, as needed IV hydralazine in interim but certainly could add if appropriate. #3. Tobacco Abuse: Encouraged cessation, inpatient consultation per RT, NR if desired. #4. Severe protein calorie malnutrition: Significantly reduced BMI, obvious muscle and fat loss, likely secondary to underlying COPD, will consult nutrition. #5. DVT prophylaxis: Lovenox. #6. CODE STATUS: Full code. Charges/Coding Visit Charges Inpatient E&M: 50145 Init Hosp L3
--- NOTE | 2022-11-10 13:00 | NURSING ---
MED SURG WHITE CAP, HYPOXIA, LEUKOCYTOSIS
[2022-11-10 13:08] LABS: Magnesium 2.7 mg/dL (1.6-2.6); Phosphorus 3.9 mg/dL (2.5-4.9)
[2022-11-10 13:16] LABS: Procalcitonin 0.24 ng/mL (0.00-0.09)
[2022-11-10 16:11] LABS: Reflex Lactate? Y
[2022-11-10 17:12] LABS: Lactic Acid 2.6 mmol/L (0.4-1.9)
--- NOTE | 2022-11-10 17:36 | MDS.RN ---
pt nancy urine obtained in ER
[2022-11-10] MEDS: 0.9% Normal Saline 1,000 ML 100 ML IV (17:52)
[2022-11-10] MEDS: 0.9% Saline Lock 10 ML Syringe IV (17:53)
[2022-11-10] MEDS: Methylprednisolone Sod Succ 40 MG/ML VIAL IV (22:45)
[2022-11-10] MEDS: HYDROcodone Bitartrate/Apap 5/325 Tablet PO (23:13)
[2022-11-10] MEDS: MELATONIN 3 MG TABLET PO (23:13)
[2022-11-11] MEDS: guaiFENesin 1,200 MG Tablet 1200 MG PO ×2 (02:00→10:11)
[2022-11-11 03:45] VITALS: BP 140/105; PULSE 92; RESP 18; TEMP 36.1; O2SAT 94
[2022-11-11] MEDS: Methylprednisolone Sod Succ 40 MG/ML VIAL IV (05:12)
[2022-11-11] MEDS: 0.9% Saline Lock 10 ML Syringe IV (05:12)
--- NOTE | 2022-11-11 06:04 | PCM.PN.HOSP ---
Reason for Visit Reason for Visit: Diagnoses Pneumonia, unspecified organism (11/10/22) Hypoxemia (11/10/22) Subjective Subjective With no acute events per self or per nursing report. Patient did have a respiratory panel result with positive past the right lower lobe patient was continued on antibiotic therapy given concerns for superimposed pneumonia. She notes feeling improved and breathing with greater ease with eagerness for discharge. She states she did not sleep well in the hospital and would do better at home. She did have an oxygenation ambulatory trial and was able to maintain 91% at rest and with activity. Given this and her desire as well as improvement quicker than expected clinically noted intention for discharge home once things were in place. Patient denies fevers, chills, nausea, emesis, abdominal pain, chest pain. Objective Data Objective Data Vital Signs: Vital Signs Temp Pulse Resp BP Pulse Ox O2 Del Method O2 Flow Rate 96.9 F L 92 18 140/105 H 94 Nasal Cannula 2 11/11/22 03:45 11/11/22 03:45 11/11/22 03:45 11/11/22 03:45 11/11/22 03:45 11/11/22 03:48 11/11/22 03:45 Oxygen Flow Rate (L/min) 2 Oxygen Delivery Method Nasal Cannula Weight: 76 lb 4.479 oz Body Mass Index (BMI) 14.3 Intake & Output: Intake and Output for Last 24 Hours 11/09/22 11/10/22 11/11/22 23:59 23:59 23:59 Intake Total 803.5 / 803.5 1000 / 1000 Balance 803.5 / 803.5 1000 / 1000 Lab / Micro Data 11/11/22 06:02 11/11/22 06:02 Labs: Laboratory Results - last 24 hr 11/10/22 11:30: WBC 23.0 H, RBC 5.52 H, Hgb 14.5, Hct 48.0 H, MCV 87.0, MCH 26.3 L, MCHC 30.2 L, RDW Std Deviation 45.5 H, RDW Coeff of Emeli 14.3, Plt Count 365, MPV 10.0, Immature Gran % (Auto) 0.600, Neut % (Auto) 88.8 H, Lymph % (Auto) 5.0 L, [place] % (Auto) 5.2, Eos % (Auto) 0.0, Baso % (Auto) 0.4, Absolute Neuts (auto) 20.4 H, Absolute Lymphs (auto) 1.14, Nucleated RBC % 0, Sodium 135 L, Potassium 5.0, Chloride 97 L, Carbon Dioxide 33.0 H, Anion Gap 5, BUN 28 H, Creatinine 0.84, Estim Creat Clear Calc 38.42, Est GFR (MDRD) Af Amer 88, Est GFR (MDRD) Non-Af 73, BUN/Creatinine Ratio 33.2 H, Glucose 145 H, Calcium 10.2 H, Phosphorus 3.9, Magnesium 2.7 H, Procalcitonin 0.24 H 11/10/22 12:00: Lactic Acid 3.0 H* 11/10/22 16:25: Lactic Acid 2.6 H* Micro: Microbiology 11/10/22 12:34 Urine, Clean Catch Legionella Antigen - Final 11/10/22 12:34 Urine, Clean Catch Streptococcus pneumoniae Antigen (M - Final 11/10/22 14:45 Mucosa - Nasopharyngeal Coronavirus COVID-19 PCR - Final 11/10/22 14:45 Mucosa - Nasopharyngeal Respiratory Panel (PCR) - Final Rhinovirus 11/10/22 12:00 Nasal Secretion SARS-CoV-2 & FLU Antigen (Rapid) - Final Radiography Diagnostic Testing: Radiology Impression Chest X-Ray 11/10/22 11:48 IMPRESSION: Hyperinflated lungs suggestive of COPD. Patchy opacity within the right lower lobe may reflect pneumonia. Electronically Signed: Evelin Martinez MD at 12:06 EDT , Physical Exam Narrative Physical Examination: General: Awake, alert, oriented x 3 and cooperative, seated upright in the bed, markedly improved since day prior, no overt evidence of any dyspnea, breathing with greater ease. Skin: Normal color, normal turgor, no icterus, no cyanosis. HEENT: AT/NC, EOMI, PERRLA, improved MMM. Lungs: Diminished but improved movement the day prior, wheezing subsided, no evidence of distress, no rales or rhonchi. Heart: Proved, regular rate with regular rhythm; no gallop, rub audible. Abdomen: Soft, thin cachectic habitus, NTTP, ND, normal BS. Extremities: No cyanosis, clubbing, or edema, obvious muscle and fat loss. Neurological: Patient awake, alert, oriented as noted, cognitive function intact; pupils equally reactive to light and accommodation, cranial nerves II-XII grossly normal, moving all 4 extremities, no focal deficits, strength notably improved, mild to moderately globally decreased. Psychiatric: Affect appears fatigued but improved from day prior, no acute evidence of depressive or anxiety feelings. Assessment & Plan Assessment/Plan (1) Community acquired pneumonia: (2) Hypoxia: PLAN: Plan The patient is a 62 y/o F w/ PMHx: HTN, Tobacco use, Suspected Underlying, Severe Protein Calorie Malnutrition w/ reduced BMI who presents to the [facility] ED on 11/10/22 with history of increased fatigue and malaise for approximately 2 weeks with 1 crease of cough with increased dyspnea progressively worsening reporting that her boyfriend is also been ill bringing up yellow to green sputum with no specific fevers but notes notable diaphoresis more short of breath with any exertion prompting eventual ED evaluation. #1. Acute Hypoxia secondary to Acute Superimposed RLL Pneumonia Community Acquired PNA and concurrent Acute on Chronic COPD Exacerbation as well as Acute Rhinoviral Viral Syndrome with Lactic acidosis likely secondary to hypoxia and infectious process: Admitted to [place], maintained on oxygen with wean as tolerated to room air although suspect will need supplementation at discharge, continued ATC duonebs, PRN albuterol, maintained on IV Rocephin and Azithromycin, IV solumedrol, HOB, IS parameters w/ pending sputum cultures, COVID PCR negative, full respiratory viral panel w/ + rhinovirus, urine antigens negative. Patient preference and clinical improvement quicker than expected oxygenation ambulatory trial performed and patient maintained appropriate saturation 91% at rest and with activity. Patient will be transition to oral antibiotic therapy, oral prednisone taper as well as inhalers with recommended strong follow-up with primary care physician with PFTs once clinically resolved her acute pulmonary illness and tobacco cessation. #2. Hypertension: In the ED BP normal range however following admission BP did increase above goal. She had previously been attempted on diuretics as well as metoprolol but given her underlying pulmonary disease and frail status would defer these agents and added and continued low dose norvasc, PRN IV hydralazine. Plan to continue low-dose Norvasc at discharge. #3. Tobacco Abuse: Encouraged cessation, inpatient consultation per RT, NR if desired. #4. Severe protein calorie malnutrition: Significantly reduced BMI, obvious muscle and fat loss, likely secondary to underlying COPD, will consult nutrition. #5. DVT prophylaxis: Lovenox. #6. CODE STATUS: Full code. Charges/Coding Visit Charges Inpatient E&M: 37137 Subs Hosp L2
[2022-11-11 06:44] LABS: Absolute Lymphocyte Count 0.74 X10^3/uL (0.83-4.51); Absolute Neutrophil Count 15.6 X10^3/uL (2.0-7.7); Basophil# 0.03 X10^3/uL; Basophil% 0.2 % (0-1); Hematocrit 41.2 % (37-47); Hemoglobin 12.1 g/dL (12.0-15.0); Lymphocyte # 0.74 X10^3/ul (0.83-4.51); Lymphocyte % 4.3 % (19-41); Mean Corp Hgb Conc 29.4 g/dL (32-36); Mean Corpuscular Hgb 26.1 pg (27.0-32.0); Mean Corpuscular Volume 88.8 fL (81-99); Mean Platelet Vol. 10.1 fl (6.2-12.0); Monocyte# 0.52 X10^3/uL; NRBC Flagged by Analyzer 0 % (0-5); Neutrophil # 15.61 X10^3/uL (2.7-7.7); Neutrophil % 91.4 % (47-70); Platelet Count 315 K/mm3 (150-450); RBC Distribution Width CV 14.4 % (11.6-14.6); RBC Distribution Width SD 46.5 fl (35.1-43.9); Red Blood Count 4.64 M/mm3 (4.2-5.4); White Blood Count 17.1 K/mm3 (4.4-11.0)
[2022-11-11 07:03] VITALS: PULSE 97; RESP 20; O2SAT 95
[2022-11-11] MEDS: Ipratropium/Albuterol Sulfate 3 ML AMPUL.NEB INHALATION ×2 (07:03→11:10)
[2022-11-11 07:24] LABS: ALB/GLOB Ratio 0.5 RATIO (0.9-2.4); AST(SGOT) 123 U/L (15-37); Alanine Aminotransfer ALT/SGPT 120 U/L (13-56); Albumin, Serum 2.4 g/dL (3.2-5.0); Alkaline Phosphatase 201 U/L (45-117); Anion Gap 2 (5-15); BUN 17 mg/dL (7-18); BUN/Creat Ratio 39.4 RATIO (10-20); Calcium,Total 9.4 mg/dL (8.5-10.1); Chloride 104 mmol/L (98-107); Creatinine, Serum 0.43 mg/dL (0.55-1.02); EST Glomerular Filtration Rate 158 mL/min (>60); Est Glom Filt Rate - Afr Amer 191 mL/min (>60); Estimated Creatinine Clearance 75.04 ml/min; Globulin 4.4 g/dL (2.2-4.2); Glucose 130 mg/dL (74-106); Potassium 4.8 mmol/L (3.5-5.1); Protein, Total 6.8 g/dL (6.4-8.2); Sodium Level 140 mmol/L (136-145)
[2022-11-11 09:45] VITALS: BP 131/84; PULSE 100; RESP 18; TEMP 36.7; O2SAT 91
[2022-11-11] MEDS: Ceftriaxone 1 GM/50 ML BAG IV (10:10)
[2022-11-11] MEDS: HYDROcodone Bitartrate/Apap 5/325 Tablet PO (10:11)
[2022-11-11 10:55] VITALS: O2SAT 91
[2022-11-11 11:10] VITALS: PULSE 89; RESP 20
--- NOTE | 2022-11-11 11:18 | DS.PCM_ITS ---
Providers Date of Admission: 11/10/22 Date of Discharge: 11/11/22 Primary Care Physician: Dr. Lionel Dunn DO Reason For Visit: PNA, COPD EXAC, HYPOXIA Diagnosis Discharge Diagnosis (1) Community acquired pneumonia: Status: Acute Code(s): J18.9 - Pneumonia, unspecified organism (2) Hypoxia: Status: Acute Code(s): R09.02 - Hypoxemia Plan: DISCHARGE DIAGNOSES: #1. Acute Hypoxia secondary to Acute COPD exacerbation secondary to Acute Rhinoviral syndrome and Acute Superimposed Pneumonia, unclear superimposed bacterial organism #2. Hypertension, uncontrolled #3. Tobacco Abuse #4. Severe protein calorie malnutrition Medications at Discharge Home Medications hydrocodone-acetaminophen 5-325mg 5mg-325mg 1 ea PO BID 08/08/19 guaifenesin 600 mg tablet, extended release 12 hr 1,200 mg PO BID lungs 08/13/19 acetaminophen 650 mg tablet,extended release (8 Hour Pain Reliever) 650 mg PO Q8H PRN pain 11/10/22 albuterol sulfate 90 mcg/actuation aerosol inhaler 2 puff inhalation Q4H PRN PRN shortness of breath or wheezing #8.5 grams 11/11/22 amlodipine 5 mg tablet 5 mg PO DAILY 30 days #30 tabs 11/11/22 azithromycin 500 mg tablet 500 mg PO DAILY 3 days #3 tabs 11/11/22 cefdinir 300 mg capsule 300 mg PO BID 5 days #10 caps 11/11/22 fluticasone 250 mcg-salmeterol 50 mcg/dose blistr powdr for inhalation (Advair Diskus) 1 inh inhalation Q12H #60 ea 11/11/22 prednisone 10 mg tablet See Taper PO TID COPD exacerbation #30 tabs 11/11/22 Hospital Course Operations None Procedures EKG Summary of Care Provided Minutes Spent on Discharge: 35 Hospital Course: The patient is a 62 y/o F w/ PMHx: HTN, Tobacco use, Suspected Underlying, Severe Protein Calorie Malnutrition w/ reduced BMI who presented to the [facility] ED on 11/10/22 with history of increased fatigue and malaise for approximately 2 weeks with 1 crease of cough with increased dyspnea progressively worsening reporting that her boyfriend is also been ill bringing up yellow to green sputum with no specific fevers but notes notable diaphoresis more short of breath with any exertion prompting eventual ED evaluation. Patient admitted to [place], maintained on oxygen with wean as tolerated to room air, continued ATC duonebs, PRN albuterol, maintained on IV Rocephin and Azithromycin, IV solumedrol, HOB, IS parameters w/ pending sputum cultures at discharge, COVID PCR negative, full respiratory viral panel w/ + rhinovirus, urine antigens negative. Patient overnight clinically improved much more than expected and requested discharge. She had oxygenation testing performed and maintained 91% oxygenation on room air at rest and with ambulation. Given this clinical improvement and patient request patient discharged to home on steroid taper, transitioned oral abx regimen, inhaler COPD regimen with rescue with encouraged PCP follow-up for formal PFTs once resolved acute presentation as well as low dose norvasc secondary to BP above goal. Strongly encouraged tobacco cessation. Patient requested to follow- up with PCP within 3-5 days or earlier if any concerns/questions. Weight / BMI Weight Weight: 76 lb 4.479 oz Body Mass Index (BMI) 14.3 ABG / Lab / Microbiology Data 11/11/22 06:02 11/11/22 06:02 Laboratory: Laboratory Results - last 24 hr 11/10/22 11:30: WBC 23.0 H, RBC 5.52 H, Hgb 14.5, Hct 48.0 H, MCV 87.0, MCH 26.3 L, MCHC 30.2 L, RDW Std Deviation 45.5 H, RDW Coeff of Emeli 14.3, Plt Count 365, MPV 10.0, Immature Gran % (Auto) 0.600, Neut % (Auto) 88.8 H, Lymph % (Auto) 5.0 L, [place] % (Auto) 5.2, Eos % (Auto) 0.0, Baso % (Auto) 0.4, Absolute Neuts (auto) 20.4 H, Absolute Lymphs (auto) 1.14, Nucleated RBC % 0, Sodium 135 L, Potassium 5.0, Chloride 97 L, Carbon Dioxide 33.0 H, Anion Gap 5, BUN 28 H, Creatinine 0.84, Estim Creat Clear Calc 38.42, Est GFR (MDRD) Af Amer 88, Est GFR (MDRD) Non-Af 73, BUN/Creatinine Ratio 33.2 H, Glucose 145 H, Calcium 10.2 H, Phosphorus 3.9, Magnesium 2.7 H, Procalcitonin 0.24 H 11/10/22 12:00: Lactic Acid 3.0 H* 11/10/22 16:25: Lactic Acid 2.6 H* 11/11/22 06:02: WBC 17.1 H, RBC 4.64, Hgb 12.1, Hct 41.2, MCV 88.8, MCH 26.1 L, MCHC 29.4 L, RDW Std Deviation 46.5 H, RDW Coeff of Emeli 14.4, Plt Count 315, MPV 10.1, Immature Gran % (Auto) 1.100 H, Neut % (Auto) 91.4 H, Lymph % (Auto) 4.3 L , [place] % (Auto) 3.0, Eos % (Auto) 0.0, Baso % (Auto) 0.2, Absolute Neuts (auto) 15.6 H, Absolute Lymphs (auto) 0.74 L, Nucleated RBC % 0, Sodium 140, Potassium 4.8, Chloride 104, Carbon Dioxide 34.0 H, Anion Gap 2 L, BUN 17, Creatinine 0.43 L, Estim Creat Clear Calc 75.04, Est GFR (MDRD) Af Amer 191, Est GFR (MDRD) Non- Af 158, BUN/Creatinine Ratio 39.4 H, Glucose 130 H, Calcium 9.4, Total Bilirubin 0.20, AST 123 H, ALT 120 H, Alkaline Phosphatase 201 H, Total Protein 6.8, Albumin 2.4 L, Globulin 4.4 H, Albumin/Globulin Ratio 0.5 L Microbiology: Microbiology 11/10/22 12:34 Urine, Clean Catch Legionella Antigen - Final 11/10/22 12:34 Urine, Clean Catch Streptococcus pneumoniae Antigen (M - Final 11/10/22 14:45 Mucosa - Nasopharyngeal Coronavirus COVID-19 PCR - Final 11/10/22 14:45 Mucosa - Nasopharyngeal Respiratory Panel (PCR) - Final Rhinovirus 11/10/22 12:00 Nasal Secretion SARS-CoV-2 & FLU Antigen (Rapid) - Final Radiography Diagnostic Testing: Radiology Impression Chest X-Ray 11/10/22 11:48 IMPRESSION: Hyperinflated lungs suggestive of COPD. Patchy opacity within the right lower lobe may reflect pneumonia. Electronically Signed: Evelin Martinez MD at 12:06 EDT , D/C Instructions Discharge Diet: No restrictions May resume sexual activity in: 10-14 days (Or once you have been allowed to increase your activity.) Weight Bearing Status: Weight bearing as tolerated Call your doctor if you observe: Fever of 101 or Higher, Numbness or Tingling, Shortness of breath, Dizziness, Increased palpitations (irregular heartbeat), Calf discomfort and Uncontrolled pain Meaningful Use Info Meaningful Use Diagnoses (Choose all that apply): None applicable Discharge Plan Admission Admit Date/Time: 11/10/22 12:30 Primary Reason for Your Visit: Hypoxia, COPD Exacerbation, Rhinovirus infection, Superimposed RLL CAP Attending Provider: Chelsea Vegas Primary Care Provider: Lionel Dunn Instructions Patient Instructions: Chronic Lung Disease Infections, Discharge Instructions: COPD, Understanding the Cold Virus, Pneumonia Additional Instructions / Restrictions: DISCHARGE INSTRUCTIONS/FOLLOW-UP: #1. Acute Hypoxia (low oxygen) secondary to Acute COPD exacerbation secondary to Acute Rhinoviral syndrome and Acute Superimposed Pneumonia: Please continue scheduled advair with as needed albuterol regimen. Complete the antibiotic therapy as written. Continue the steroid taper and if when you decrease the taper or go off if you have recurrent wheezing or issues please immediately let your primary care office know as this may be extended. It is important to follow-up with your primary care and once you have resolved your acute presentation have formal pulmonary function testing be performed. We strongly encourage tobacco complete cessation. #2. Hypertension: During the admission your blood pressure remained above goal thus low dose norvasc was added with improvement. You have been sent a rx of this regimen to the pharmacy. Please follow-up with your primary care physician to continue to assess your blood pressures and make further adjustments as needed. Discharge Orders/Prescriptions Prescriptions: New amlodipine 5 mg Tablet 5 mg PO DAILY 30 Days Qty: 30 0RF albuterol sulfate 90 mcg/actuation HFA aerosol inhaler 2 puff inhalation Q4H PRN PRN (Reason: shortness of breath or wheezing) Qty: 8.5 0RF fluticasone propion-salmeterol [Advair Diskus] 250-50 mcg/dose blister with device 1 inh inhalation Q12H Qty: 60 0RF prednisone 10 mg tablet See Taper PO TID Qty: 30 0RF Taper: Prednisone Taper 40 mg WITH BREAKFAST for 3 Days and 0 Hour 30 mg WITH BREAKFAST for 3 Days and 0 Hour 20 mg WITH BREAKFAST for 3 Days and 0 Hour 10 mg WITH BREAKFAST for 3 Days and 0 Hour azithromycin 500 mg tablet 500 mg PO DAILY 3 Days Qty: 3 0RF cefdinir 300 mg capsule 300 mg PO BID 5 Days Qty: 10 0RF Continued guaifenesin 600 mg tablet extended release 12hr 1,200 mg PO BID hydrocodone-acetaminophen 1 EACH tablet 1 ea PO BID acetaminophen [8 Hour Pain Reliever] 650 mg tablet extended release 650 mg PO Q8H PRN (Reason: pain) Referrals / Follow Up: Lionel Dunn DO [Primary Care Provider] - (Follow-up with your PCP within 3-5 days to review admission or earlier if concerns.) Disposition Disposition (needs filled in before D/C Order can be placed): Home, Self Care Charges/Coding Visit Charges Inpatient E&M: 69070 Disch Hosp >30min
== END 2022-11-11 12:30 | disposition home or self-care (01) | DRG 193 ==
LOC: ED 12:51 → MS3 16:57
PROVIDERS: Nurse Practitioner; Admitting Provider Family Medicine; Emergency Provider Emergency Medicine; PCP Student in an Organized Health Care Education/Training Program; Visit Provider Family Medicine
DX: J18.9 Pneumonia, unspecified organism (principal); E43 Unspecified severe protein-calorie malnutrition; E87.20 Acidosis, unspecified; J44.0 Chronic obstructive pulmonary disease with (acute) lower respiratory infection; J44.1 Chronic obstructive pulmonary disease with (acute) exacerbation; Z68.1 Body mass index [BMI] 19.9 or less, adult; I10 Essential (primary) hypertension; J98.01 Acute bronchospasm; F17.210 Nicotine dependence, cigarettes, uncomplicated; B97.89 Other viral agents as the cause of diseases classified elsewhere
CPT/HCPCS: 36415; 71046; 80048; 80053; 83605; 83735; 84100; 84145; 85025; 87040; 87428; 87449; 87633; 87635; 93005; 94640; 94668; 99252; 99285; J7030; J7040; A4216; G0463

== ENCOUNTER → 2022-11-21 | Outpatient (CLI) | payer MEDICARE, SELFPAY ==
[2022-11-21 11:58] LABS: Amphetamine Urine VISTA NEGATIVE (<1000 ng/mL); Barbiturate Urine VISTA NEGATIVE (< 200 ng/mL); Benzodiazepine Urine VISTA NEGATIVE (< 200 ng/mL); Cocaine Urine VISTA NEGATIVE (< 300 ng/mL); Ecstacy Urine VISTA NEGATIVE (< 500 ng/mL); Methadone Urine VISTA NEGATIVE (< 300 ng/mL); PCP Urine VISTA NEGATIVE (< 25 ng/mL); THC Urine VISTA NEGATIVE (< 50 ng/mL); Vista UDS pH Range 7
== END | disposition home or self-care (01) ==
LOC: LAB 10:26
PROVIDERS: PCP Student in an Organized Health Care Education/Training Program; Referring Provider Anesthesiology Pain Medicine; Visit Provider Anesthesiology Pain Medicine
DX: F11.20 Opioid dependence, uncomplicated (principal)
CPT/HCPCS: 80307